=== PATIENT | male | born 1990 | race Caucasian/White ===

== ENCOUNTER 2018-08-07 17:36 | Emergency (ER) | payer SELFPAY | END 2018-08-07 18:28 | disposition left against medical advice (07) | LOC: EMS 17:38 | DX: Z00.8 Encounter for other general examination (principal); Z53.21 Procedure and treatment not carried out due to patient leaving prior to being seen by health care provider ==

== ENCOUNTER 2024-01-10 22:00 | Outpatient (CLI) | payer OTHER ==
[2024-01-10] MEDS ORDERED: DiphenhydrAMINE HCL 50 MG/ML VIAL ONE (22:36)
[2024-01-10] MEDS ORDERED: HALOPERIDOL LACTATE 5 MG/ML VIAL ONE (22:36)
[2024-01-10] MEDS ORDERED: LORazepam 2 MG/ML VIAL ONE (22:36)
[2024-01-10] MEDS: DiphenhydrAMINE HCL 50 MG/ML VIAL IM ONE (23:07)
[2024-01-10] MEDS: HALOPERIDOL LACTATE 5 MG/ML VIAL IM ONE (23:09)
[2024-01-10] MEDS: LORazepam 2 MG/ML VIAL IM ONE (23:09)
== END 2024-01-10 23:35 | disposition short-term general hospital (02) ==
LOC: CSU 22:00 → EDSTATUS 01-16 13:55
PROVIDERS: ATTEND Student in an Organized Health Care Education/Training Program
DX: F10.129 Alcohol abuse with intoxication, unspecified (principal); R45.851 Suicidal ideations; F32.A Depression, unspecified; F41.9 Anxiety disorder, unspecified; F22 Delusional disorders
CPT/HCPCS: 90839; 96372; 90840; J1200; J1630; J2060

== ENCOUNTER 2024-01-10 23:59 | Emergency (ER) | payer OTHER ==
[~2024-01-10] VITALS: Ht 175.3 cm; Wt 81.8 kg
[2024-01-11 00:34] LABS: COVID AG,FIA SOURCE NASAL SWAB
[2024-01-11 00:54] LABS: BASOPHILS % (AUTO) 1.2 % (0.0-2.0); EOSINOPHILS % (AUTO) 0.6 % (1.0-6.0); HEMATOCRIT 33.8 % (41-53); LYMPHOCYTES # (AUTO) 1.6 K/uL (1.0-4.8); LYMPHOCYTES % (AUTO) 15.5 % (22.0-44.0); MEAN CORPUSCULAR HEMOGLOBIN 26.7 pg (26.0-34.0); MEAN CORPUSCULAR HGB CONC 32.5 G/dL (31.0-37.0); MEAN CORPUSCULAR VOLUME 82 fL (80-100); MONOCYTES # (AUTO) 0.8 K/uL (0.1-1.0); MONOCYTES % (AUTO) 7.8 % (2.0-9.0); NEUTROPHILS # (AUTO) 7.7 K/uL (1.8-7.7); NEUTROPHILS % (AUTO) 74.9 % (40.0-70.0); PLATELET COUNT (AUTO) 307 K/uL (150-450); RED BLOOD CELL COUNT(AUTO) 4.12 MIL/uL (4.50-5.90); RED CELL DISTRIBUTION WIDTH 14.4 % (11.5-14.5); WHITE BLOOD COUNT (AUTO) 10.3 K/uL (4.5-11.0)
[2024-01-11 01:03] LABS: ANION GAP 13 mmol/L (8-16); CALCIUM, TOTAL 7.8 mg/dL (8.8-10.5); CARBON DIOXIDE 24 mmol/L (22-29); CHLORIDE 108 mmol/L (98-107); CREATININE 1.16 mg/dL (0.60-1.30); GLOMERULAR FILTR. RATE CALC > 60 mL/min (>60); GLUCOSE,RANDOM 100 mg/dL (70-110); POTASSIUM 3.9 mmol/L (3.5-5.1); SODIUM SERUM 145 mmol/L (136-145); UREA NITROGEN, BLOOD 16 mg/dL (7-18)
[2024-01-11 01:08] LABS: SARS-COV2 (COVID) ANTIGEN,FIA Negative (Negative)
[2024-01-11 01:09] LABS: ACETAMINOPHEN < 2 mcg/mL (10-30); ALANINE AMINOTRANSFERASE 105 U/L (12-78); ALBUMIN 3.6 g/dL (3.4-5.0); ALKALINE PHOSPHATASE 76 U/L (46-116); ASPARTATE AMINOTRANSFERASE 125 U/L (15-37); BILIRUBIN,TOTAL 0.4 mg/dL (0.1-1.0); TOTAL PROTEIN, SERUM 6.9 g/dL (6.4-8.2)
[2024-01-11 01:10] LABS: ALCOHOL, BLOOD (SERUM) 265 mg/dL (0-10)
[2024-01-11 03:55] VITALS: TEMP 97.7
[2024-01-11 04:13] LABS: PH,URINE DRUG SCREEN 5.5 (5.0-8.0)
[2024-01-11 04:19] LABS: ALCOHOL, URINE DRUG SCREEN POSITIVE (NEGATIVE); AMPHET/METH SCREEN,URINE NEGATIVE (NEGATIVE); BARBITURATE SCREEN, URINE NEGATIVE (NEGATIVE); BENZODIAZEPINES SCREEN,URINE POSITIVE (NEGATIVE); CANNABINOID SCREEN,URINE NEGATIVE (NEGATIVE); COCAINE SCREEN,URINE NEGATIVE (NEGATIVE); METHADONE SCREEN, URINE NEGATIVE (NEGATIVE); OPIATE SCREEN,URINE NEGATIVE (NEGATIVE); PHENCYCLIDINE SCREEN,URINE NEGATIVE (NEGATIVE)
[2024-01-11 08:55] VITALS: BP 101/60; PULSE 114; RESP 18
== END 2024-01-11 12:16 | disposition short-term general hospital (02) ==
LOC: EMS 23:59
DX: F32.9 Major depressive disorder, single episode, unspecified (principal); R45.851 Suicidal ideations; Z20.822 Contact with and (suspected) exposure to COVID-19; F10.229 Alcohol dependence with intoxication, unspecified
CPT/HCPCS: 99291; 80053 ×2; 85025 ×2; 36415 ×2; 80061; 83036; 84439; 84443; 80307 ×2; 87426 ×2; G0481; G0480